=== PATIENT | female | born 1995 | race Caucasian/White ===

== ENCOUNTER 2016-07-22 19:23 | Emergency (ER) | payer OTHER | END 2016-07-22 22:50 | disposition home or self-care (01) | LOC: D.ER 19:23 | DX: S90.31XA Contusion of right foot, initial encounter (principal); W01.0XXA Fall on same level from slipping, tripping and stumbling without subsequent striking against object, initial encounter; Y93.89 Activity, other specified; Y92.219 Unspecified school as the place of occurrence of the external cause; F90.9 Attention-deficit hyperactivity disorder, unspecified type ==

== ENCOUNTER 2016-09-17 00:20 | Emergency (ER) | payer OTHER | END 2016-09-17 01:39 | disposition home or self-care (01) | LOC: D.ER 00:20 | DX: S93.402A Sprain of unspecified ligament of left ankle, initial encounter (principal); W10.9XXA Fall (on) (from) unspecified stairs and steps, initial encounter; Y93.89 Activity, other specified; Y92.830 Public park as the place of occurrence of the external cause; S93.602A Unspecified sprain of left foot, initial encounter; F90.9 Attention-deficit hyperactivity disorder, unspecified type ==